=== PATIENT | female | born 1955 | race Caucasian/White ===

== ENCOUNTER 2016-08-10 12:29 | Emergency (ER) | payer OTHER ==
[~2016-08-10] VITALS: Ht 162.6 cm; Wt 77.1 kg
[~2016-08-10 12:29] MED LIST: ATENOLOL50 MG PO; ATORVASTATIN CA40 MG PO; CARAFATE100 MG/ML PO; CLINDAMYCIN HC300 MG PO; CYANOCOBAL1000 MCG/2 IM; ESTRADIOL1 MG PO; FOLIC ACID0.8 MG PO; FUROSEMIDE20 MG PO; METFORMIN HCL500 MG PO; OMEPRAZOLE40 M1 PO; SERTRALINE HCL50 MG PO; SYNTHROID88 MCG PO; TIROSINT100 MCG PO; VITAMIN D-32000 UNI1 PO
[2016-08-10 13:17] LABS: HEMATOCRIT 36.4 % (36.0-46.0); MCH 29.8 PG (29.0-34.0); MCHC 32.4 G/DL (30.0-36.0); MCV 91.9 FL (83-99); MEAN PLAT.VOLUME 11.2 uM^3 (9.5-12.4); PLATELET COUNT 286 K/uL (156-360); RBC DIS.WIDTH-CV 12.7 % (11.8-14.6); RBC DIS.WIDTH-SD 41.3 % (39-53); RED BLOOD COUNT 3.96 M/uL (3.80-5.20)
[2016-08-10 13:25] LABS: CHLORIDE 106 mEq/L (99-109); POTASSIUM 4.5 mEq/L (3.7-5.4); SODIUM 142 mEq/L (136-147)
[2016-08-10 13:26] LABS: GLUCOSE 114 mg/dL (70-99)
[2016-08-10 13:28] LABS: ANION GAP 9 MEQ/L (2-14)
[2016-08-10 13:30] LABS: GFR ESTIMATE (CALCULATED) > 59 mL/min/
[2016-08-10 13:31] LABS: UREA NITROGEN (BUN) 11 mg/dL (9-23)
[2016-08-10 13:38] LABS: TROP-I INTERPRETATION NEGATIVE; TROPONIN-I < 0.01 ng/mL (0.0-0.30)
[2016-08-10 15:29] LABS: D-DIMER ELISA < 0.15 mg/L FEU (< 0.57)
[2016-08-10 17:50] LABS: TROP-I INTERPRETATION NEGATIVE; TROPONIN-I < 0.01 ng/mL (0.0-0.30)
[2016-08-10 18:53] VITALS: BP 132/75
== END 2016-08-10 19:11 | disposition home or self-care (01) ==
LOC: EME 12:29
PROVIDERS: Emergency Medicine
DX: R07.89 Other chest pain (principal); Z87.891 Personal history of nicotine dependence; Z88.6 Allergy status to analgesic agent; E78.5 Hyperlipidemia, unspecified; I10 Essential (primary) hypertension
CPT/HCPCS: 71020; 80048; 84484; 85027; 85379; 93005; 99281; 99285; J1885

== ENCOUNTER 2017-08-25 12:49 | Emergency (ER) | payer OTHER ==
[~2017-08-25] VITALS: Ht 162.6 cm; Wt 77.7 kg
[~2017-08-25 12:49] MED LIST changes: +LEVO-T112 MCG PO
[2017-08-25] MEDS ORDERED: NORCO 7.5/321 TABLET PO (18:11)
[2017-08-25] MEDS ORDERED: MOTRIN600 MG PO (18:11)
[2017-08-25] MEDS ORDERED: VALTREX1000 MG PO (18:11)
[2017-08-25 18:53] VITALS: BP 125/69
== END 2017-08-25 19:32 | disposition home or self-care (01) ==
LOC: EME 12:49
DX: B02.30 Zoster ocular disease, unspecified (principal); I10 Essential (primary) hypertension; F32.9 Major depressive disorder, single episode, unspecified; E78.5 Hyperlipidemia, unspecified; E03.9 Hypothyroidism, unspecified; Z79.84 Long term (current) use of oral hypoglycemic drugs; Z88.6 Allergy status to analgesic agent; G51.0 Bell's palsy
CPT/HCPCS: 99281; 99284